=== PATIENT | male | born 1965 | race Caucasian/White ===

== ENCOUNTER 2018-01-13 21:37 | Observation (INO) | payer BC ==
[~2018-01-13] VITALS: Ht 177.8 cm; Wt 101.7 kg
[~2018-01-13 21:37] MED LIST: ATRITAB PO; HYDR-3533 PO; NAPR500 PO
[2018-01-13] MEDS ORDERED: SODIUM CHLORIDE 0.9% FLUSH 10 ML FLUSH IVF PRN (21:45)
[2018-01-13 21:46] VITALS: BP 120/70; PULSE 120; RESP 18; TEMP 98.6
--- NOTE | 2018-01-13 21:47 | PD ---
HPI Chief Complaint: Short of breath Time Seen by Provider: 21:40 Travel History International Travel<30 days: No Contact w/Intl Traveler<30days: No Traveled to known affect area: No History of Present Illness HPI This patient complains of shortness of breath. Symptoms are severe. He has COPD. He quit smoking 14 months ago. He became progressively short of breath over the course of a day or 2. He was wheezing. He called paramedics. They found him with room air saturation of 77%. He was doing poorly. I gave him IV Solu-Medrol and some nebulizers in route and he is still very sick but improved. He arrives critically ill. No chest pain. No syncope. Denies IV drug use. No exacerbating factors. Symptoms partially alleviated by nebulizer treatment PFSH Past Medical History COPD: Yes Diminished Hearing: No Immune Disorder: Yes (HIV +) Musculoskeletal: Yes (FX LOWER BACK) Immunizations Current: Yes Past Surgical History Abdominal Surgery: Yes (HERNIA) Other Surgery: Yes (HERNIA) Social History Alcohol Use: Yes (1-2 TIMES WEEKLY) Tobacco Use: Yes (1PPD) Substance Use: No Allergies-Medications (Allergen,Severity, Reaction): Coded Allergies: No Known Allergies (Verified , 08/26/15) Reported Meds & Prescriptions Reported Meds & Active Scripts Active Reported Lexapro (Escitalopram Oxalate) 5 Mg Tab 5 Mg PO DAILY Lisinopril 20 Mg Tab 20 Mg PO DAILY Review of Systems General / Constitutional: No: Fever Eyes: No: Visual changes HENT: No: Headaches Cardiovascular: Positive: Tachycardia, No: Chest Pain or Discomfort Respiratory: Positive: Shortness of Breath, Wheezing Gastrointestinal: No: Abdominal Pain Genitourinary: No: Dysuria Musculoskeletal: No: Pain Skin: No Rash Neurologic: No: Weakness Psychiatric: No: Depression Endocrine: No: Polydipsia Hematologic/Lymphatic: No: Easy Bruising Physical Exam Narrative GENERAL: Well-nourished, well-developed patient in respiratory distress. SKIN: Focused skin assessment reveals no rash and nodules. Skin is Warm and dry. HEAD: Atraumatic. Normocephalic. EYES: Pupils equal and round. No scleral icterus. No injection or drainage. ENT: No nasal bleeding or discharge. Mucous membranes pink and moist. NECK: Trachea midline. No JVD. CARDIOVASCULAR: Regular rate and rhythm. No murmur appreciated. Heart rate 120 RESPIRATORY: Positive accessory muscle use. Diffuse expiratory wheezing. Breath sounds equal bilaterally. GASTROINTESTINAL: Abdomen soft, non-tender, nondistended. Hepatic and splenic margins not palpable. MUSCULOSKELETAL: No obvious deformities. No clubbing. No cyanosis. No edema. NEUROLOGICAL: Awake and alert. No obvious cranial nerve deficits. Motor grossly within normal limits. Normal speech. PSYCHIATRIC: Appropriate mood and affect; insight and judgment normal. Data Data Last Documented VS Vital Signs Date Time Temp Pulse Resp B/P (MAP) Pulse Ox O2 Delivery O2 Flow Rate FiO2 01/13/18 21:50 94 Nasal Cannula 01/13/18 21:50 2.00 01/13/18 21:46 98.6 120 18 120/70 (87) Orders Orders Complete Blood Count With Diff (01/13/18 21:43) Basic Metabolic Panel (Bmp) (01/13/18 21:43) Iv Access Insert/Monitor (01/13/18 21:43) Electrocardiogram (01/13/18 21:43) Ecg Monitoring (01/13/18 21:43) Oximetry (01/13/18 21:43) Oxygen Administration (01/13/18 21:43) Chest, Single Ap (01/13/18 21:43) Sodium Chloride 0.9% Flush (Ns Flush) (01/13/18 21:45) Albuterol-Ipratropium Neb (Duoneb Neb) (01/13/18 21:45) Admit Order (Ed Use Only) (01/13/18 22:47) Labs Laboratory Tests Test 01/13/18 21:51 White Blood Count 6.4 TH/MM3 Red Blood Count 4.44 MIL/MM3 Hemoglobin 15.0 GM/DL Hematocrit 43.4 % Mean Corpuscular Volume 97.7 FL Mean Corpuscular Hemoglobin 33.7 PG Mean Corpuscular Hemoglobin Concent 34.5 % Red Cell Distribution Width 11.4 % Platelet Count 204 TH/MM3 Mean Platelet Volume 8.7 FL Neutrophils (%) (Auto) 53.4 % Lymphocytes (%) (Auto) 29.7 % Monocytes (%) (Auto) 9.0 % Eosinophils (%) (Auto) 5.9 % Basophils (%) (Auto) 2.0 % Neutrophils # (Auto) 3.4 TH/MM3 Lymphocytes # (Auto) 1.9 TH/MM3 Monocytes # (Auto) 0.6 TH/MM3 Eosinophils # (Auto) 0.4 TH/MM3 Basophils # (Auto) 0.1 TH/MM3 CBC Comment DIFF FINAL Differential Comment Blood Urea Nitrogen 12 MG/DL Creatinine 0.93 MG/DL Random Glucose 123 MG/DL Calcium Level 8.8 MG/DL Sodium Level 137 MEQ/L Potassium Level 4.1 MEQ/L Chloride Level 104 MEQ/L Carbon Dioxide Level 20.9 MEQ/L Anion Gap 12 MEQ/L Estimat Glomerular Filtration Rate 85 ML/MIN MDM Medical Decision Making Medical Screen Exam Complete: Yes Emergency Medical Condition: Yes Medical Record Reviewed: Yes Differential Diagnosis COPD, pneumonia, pneumothorax Narrative Course I have reviewed the patient's electronic medical record. This patient presents critically ill in respiratory distress. He is in acute hypoxic respirator failure I gave him a series of 3 nebulizer treatments I placed on oxygen Saturations are 88% on arrival on room air IV placed and labs sent I reviewed his EKG which shows sinus tachycardia without ectopy I reviewed his chest x-ray which shows chronic interstitial changes CBC and metabolic studies are reasonably normal Patient experienced significant improvement after the above treatments He has some persistent wheezing but improved Saturations are still on the low side, now 92% on room air On 2 L he is 97% Stable for regular floor observation at this time. Call placed to hospitalist to discuss Critical Care Narrative Aggregate critical care time was 35 minutes. Time to perform other separately billable procedures was not included in the critical care time. My time did not include minutes spent treating any other patients simultaneously or on activities that did not directly contribute to the patient's treatment. The services I provided to this patient were to treat and/or prevent clinically significant deterioration that could result in: Pulmonary arrest, respiratory collapse, aspiration I provided critical care services requiring my management, as noted below: Chart data review, documentation time, medication orders and management, vital sign assessments/reviewing monitor data, ordering and reviewing lab tests, ordering and interpreting/reviewing x-rays and diagnostic studies, care of the patient and discussion of the patient with the admitting physicians. Diagnosis Primary Impression: Acute respiratory failure with hypoxia Additional Impression: COPD with acute exacerbation Admitting Information Admitting Physician Requests: Observation Sylvain Mendes MD Jan 13, 2018 21:47
[2018-01-13 21:50] VITALS: O2SAT 94
[2018-01-13] MEDS: RESP: ALBUTEROL 2.5 MG/IPRATROPIUM 0.5 MG NEB (SCH) INH ×3 (21:52→22:14)
[2018-01-13] MEDS ORDERED: LISI-515 PO (21:55)
[2018-01-13 22:12] LABS: AUTOMATED NEUTROPHIL # 3.4 TH/MM3 (1.8-7.7); BASOPHIL # 0.1 TH/MM3 (0-0.2); EOSINOPHIL # 0.4 TH/MM3 (0-0.4); EOSINOPHIL % 5.9 % (0.0-4.0); HEMATOCRIT 43.4 % (39.0-51.0); LYMPH % 29.7 % (9.0-44.0); LYMPHOCYTE # 1.9 TH/MM3 (1.0-4.8); MEAN CELL VOLUME 97.7 FL (80.0-100.0); MEAN CORPUSCULAR HEMOGLOBIN 33.7 PG (27.0-34.0); MEAN CORPUSCULAR HGB CONC 34.5 % (32.0-36.0); MEAN PLATELET VOLUME 8.7 FL (7.0-11.0); MONOCYTE # 0.6 TH/MM3 (0-0.9); NEUT % 53.4 % (16.0-70.0); PLATELET COUNT 204 TH/MM3 (150-450); RED BLOOD COUNT 4.44 MIL/MM3 (4.50-5.90); RED CELL DISTRIBUTION WIDTH 11.4 % (11.6-17.2); WHITE BLOOD COUNT 6.4 TH/MM3 (4.0-11.0)
--- NOTE | 2018-01-13 22:13 | RADRPT ---
EXAM DATE: 01/13/2018 10:11 PM EDT AGE/SEX: 52 years / Male INDICATIONS: Shortness of breath. CLINICAL DATA: This is the patient's initial encounter. Patient reports that signs and symptoms have been present for 2 days and indicates a pain score of 0/10. MEDICAL/SURGICAL HISTORY: None. None. COMPARISON: No prior exams available for comparison. FINDINGS: There are mild chronic interstitial changes. The lungs are otherwise clear. The cardiac and mediastin al contours are within normal limits. The visualized bony structures are grossly intact. CONCLUSION: Mild chronic interstitial changes. Electronically signed by: Contreras Rios MD 01/13/2018 10:12 PM EDT
[2018-01-13 22:19] LABS: CALCIUM 8.8 MG/DL (8.5-10.1)
[2018-01-13 22:20] LABS: BICARBONATE 20.9 MEQ/L (21.0-32.0)
[2018-01-13 22:23] LABS: CREATININE 0.93 MG/DL (0.60-1.30)
[2018-01-13] MEDS ORDERED: LEXA5TAB PO (22:29)
[2018-01-13 23:01] VITALS: BP 122/62; PULSE 110; RESP 18; O2SAT 95
[2018-01-13] MEDS ORDERED: RESP: ALBUTEROL 2.5 MG/3 ML NEB (PRN) INH (23:15)
[2018-01-13] MEDS: methylPREDNISolone SOD SUCC 125 MG/2 ML VIAL IV PUSH SCH (23:15)
[2018-01-13] MEDS ORDERED: SODIUM CHLORIDE 0.9% FLUSH 10 ML FLUSH IV FLUSH PRN (23:15)
[2018-01-14 00:01] VITALS: O2SAT 97
[2018-01-14] MEDS: RESP: ALBUTEROL 2.5 MG/IPRATROPIUM 0.5 MG NEB (SCH) INH ×3 (00:01→07:35)
[2018-01-14 00:13] VITALS: BP 126/82; TEMP 98.7
[2018-01-14 00:23] VITALS: BP 133/87; PULSE 108; RESP 22; TEMP 97; O2SAT 96
[2018-01-14 04:00] VITALS: BP 136/79; PULSE 113; RESP 20; TEMP 96.9; O2SAT 95
[2018-01-14] MEDS: methylPREDNISolone SOD SUCC 125 MG/2 ML VIAL IV PUSH SCH (05:14)
[2018-01-14 06:41] LABS: AUTOMATED NEUTROPHIL # 6.9 TH/MM3 (1.8-7.7); BASOPHIL % 0.2 % (0.0-2.0); EOSINOPHIL % 0.1 % (0.0-4.0); HEMOGLOBIN 14.7 GM/DL (13.0-17.0); LYMPH % 7.3 % (9.0-44.0); LYMPHOCYTE # 0.5 TH/MM3 (1.0-4.8); MEAN CELL VOLUME 98.2 FL (80.0-100.0); MEAN CORPUSCULAR HEMOGLOBIN 33.6 PG (27.0-34.0); MEAN CORPUSCULAR HGB CONC 34.2 % (32.0-36.0); MEAN PLATELET VOLUME 8.6 FL (7.0-11.0); MONO % 1.3 % (0.0-8.0); MONOCYTE # 0.1 TH/MM3 (0-0.9); NEUT % 91.1 % (16.0-70.0); PLATELET COUNT 207 TH/MM3 (150-450); RED BLOOD COUNT 4.38 MIL/MM3 (4.50-5.90); RED CELL DISTRIBUTION WIDTH 11.7 % (11.6-17.2); WHITE BLOOD COUNT 7.5 TH/MM3 (4.0-11.0)
[2018-01-14 06:49] LABS: CALCIUM 9.1 MG/DL (8.5-10.1)
[2018-01-14 06:53] LABS: CREATININE 1.1 MG/DL (0.60-1.30)
--- NOTE | 2018-01-14 07:32 | HHI.HP ---
[facility] No Primary Care Physician Admission Diagnosis Acute hypoxic resp failure, COPD Diagnoses: (1) COPD with acute exacerbation (2) Acute respiratory failure with hypoxia Chief Complaint: Shortness breath Travel History International Travel<30 Days: No Contact w/Intl Traveler <30 Da: No Traveled to Known Affected Are: No History of Present Illness This is a pleasant 52-year-old male patient with a known medical history of COPD and HIV who presented to the ED with complaints of shortness of breath. Patient states that last evening after having a couple beers and taking a puff of marijuana he became short of breath, states that his lungs felt "like they were closing", as well as audible wheezing. Patient states that he attempted to use his inhaler as well as nebulizer without any relief. He states that up to this point he was doing well, at his normal baseline. Denies any recent illness including fever, chills, abdominal pain, nausea, vomiting, diarrhea or dysuria. Patient states he quit smoking over one year ago after many years of tobacco abuse. Supposedly patient was found with oxygen saturation on room air at 77% at home. Patient was given IV Solu-Medrol in ED and nebulizers. At the time of assessment this morning patient states he feels much improved, essentially at his baseline. He states he follows with the PCP was last seen 2 months ago denies any recent change in his medicines. Denies any recent antibiotic use or steroid use. Patient did follow with Dr. Beatty over one year ago although with change in insurance he has been unable to follow him. Review of Systems Constitutional: DENIES: Fatigue, Fever, Chills, Dizziness Eyes: DENIES: Diplopia Ears, nose, mouth, throat: DENIES: Vertigo Respiratory: COMPLAINS OF: Shortness of breath, DENIES: Cough, Sputum production Cardiovascular: DENIES: Chest pain, Palpitations Gastrointestinal: DENIES: Abdominal pain, Black stools, Bloody stools, Constipation, Diarrhea, Nausea, Vomiting Genitourinary: DENIES: Urinary frequency Musculoskeletal: DENIES: Joint pain Immunologic/allergic: DENIES: Eczema Neurologic: DENIES: Abnormal gait Psychiatric: DENIES: Anxiety Except as stated in HPI: all other systems reviewed are Neg Past Family Social History Past Medical History History of tobacco abuse COPD HIV positive History of lower back fracture with chronic pain Past Surgical History Hernia repair Reported Medications Active Azithromycin 500 Mg Tab 500 Mg PO DAILY 5 Days Medrol Dosepak (Methylprednisolone) 4 Mg Dspk 4 Mg PO DIRECTED Per Pharmacist direction Reported Lexapro (Escitalopram Oxalate) 5 Mg Tab 5 Mg PO DAILY Lisinopril 20 Mg Tab 20 Mg PO DAILY Allergies: Coded Allergies: No Known Allergies (Verified Allergy, Unknown, 01/13/18) Active Ordered Medications Current Medications Medications (Trade) Dose Ordered Sig/Jessica Route Start Time Stop Time Status Last Admin (NS Flush) 2 ml UNSCH PRN IVF 01/13/18 21:45 (NS Flush) 2 ml BID IV FLUSH 01/14/18 09:00 01/14/18 08:10 (NS Flush) 2 ml UNSCH PRN IV FLUSH 01/13/18 23:15 (Duoneb Neb) 1 ampule Q4HR NEB INH 01/14/18 00:00 01/14/18 07:35 (Albuterol Neb) 2.5 mg Q2HR NEB PRN INH 01/13/18 23:15 (SoluMEDROL INJ) 60 mg Q6H IV PUSH 01/13/18 23:15 01/14/18 05:14 (Lexapro) 5 mg DAILY PO 01/14/18 09:00 01/14/18 08:09 (Prinivil) 20 mg DAILY PO 01/14/18 09:00 01/14/18 08:10 Family History Maternal medical history significant for liver cancer. Paternal medical history significant for IL at the age of 6868 years old. Brother had a history of IL at the age of 5555 years old. Social History Patient admits to drinking 5-6 beers per day. Patient quit smoking 14 months ago , prior to this he was smoking 1 ppd for many years. Does admit to occasional marijuana use. Physical Exam Vital Signs Vital Signs Date Time Temp Pulse Resp B/P (MAP) Pulse Ox O2 Delivery O2 Flow Rate FiO2 01/14/18 04:00 96.9 113 20 136/79 (98) 95 01/14/18 00:23 97.0 108 22 133/87 (102) 96 01/14/18 00:13 98.7 117 18 126/82 (97) 95 Nasal Cannula 2.00 01/14/18 00:01 97 Nasal Cannula 2.00 01/13/18 23:01 110 18 122/62 (82) 95 Nasal Cannula 2.00 01/13/18 21:50 94 Nasal Cannula 01/13/18 21:50 90 Room Air 01/13/18 21:50 94 Room Air 2.00 01/13/18 21:46 98.6 120 18 120/70 (87) Physical Exam GENERAL: This is a well-nourished, well-developed patient, in no apparent distress. SKIN: No rashes, ecchymoses or lesions. Cool and dry. HEAD: Atraumatic. Normocephalic. No temporal or scalp tenderness. EYES: Pupils equal round and reactive. Extraocular motions intact. No scleral icterus. No injection or drainage. ENT: Nose without bleeding, purulent drainage or septal hematoma. Throat without erythema, tonsillar hypertrophy or exudate. Uvula midline. Airway patent. NECK: Trachea midline. No JVD or lymphadenopathy. Supple, nontender, no meningeal signs. CARDIOVASCULAR: Regular rate and rhythm without murmurs, gallops, or rubs. RESPIRATORY: Clear to auscultation. Breath sounds equal bilaterally. No wheezes , rales, or rhonchi. GASTROINTESTINAL: Abdomen soft, non-tender, nondistended. No hepato-splenomegaly , or palpable masses. No guarding. MUSCULOSKELETAL: Extremities without clubbing, cyanosis, or edema. No joint tenderness, effusion, or edema noted. No calf tenderness. Negative Homans sign bilaterally. NEUROLOGICAL: Awake and alert. Cranial nerves II through XII intact. Motor and sensory grossly within normal limits. Five out of 5 muscle strength in all muscle groups. Normal speech. Laboratory Laboratory Tests Test 01/13/18 21:51 01/14/18 06:10 White Blood Count 6.4 7.5 Red Blood Count 4.44 4.38 Hemoglobin 15.0 14.7 Hematocrit 43.4 43.0 Mean Corpuscular Volume 97.7 98.2 Mean Corpuscular Hemoglobin 33.7 33.6 Mean Corpuscular Hemoglobin Concent 34.5 34.2 Red Cell Distribution Width 11.4 11.7 Platelet Count 204 207 Mean Platelet Volume 8.7 8.6 Neutrophils (%) (Auto) 53.4 91.1 Lymphocytes (%) (Auto) 29.7 7.3 Monocytes (%) (Auto) 9.0 1.3 Eosinophils (%) (Auto) 5.9 0.1 Basophils (%) (Auto) 2.0 0.2 Neutrophils # (Auto) 3.4 6.9 Lymphocytes # (Auto) 1.9 0.5 Monocytes # (Auto) 0.6 0.1 Eosinophils # (Auto) 0.4 0.0 Basophils # (Auto) 0.1 0.0 CBC Comment DIFF FINAL DIFF FINAL Differential Comment Blood Urea Nitrogen 12 12 Creatinine 0.93 1.10 Random Glucose 123 171 Calcium Level 8.8 9.1 Sodium Level 137 138 Potassium Level 4.1 4.4 Chloride Level 104 104 Carbon Dioxide Level 20.9 19.0 Anion Gap 12 15 Estimat Glomerular Filtration Rate 85 70 Result Diagram: 01/14/18 0610 01/14/18 0610 Imaging Last Impressions Chest X-Ray 01/13/182142 Signed Impressions: CONCLUSION: Mild chronic interstitial changes. Septic Shock Reassessment Septic shock perfusion: reassessment completed Caprini VTE Risk Assessment Caprini VTE Risk Assessment: No/Low Risk (score <= 1) Caprini Risk Assessment Model Point Value = 1 Point Value = 2 Point Value = 3 Point Value = 5 Age 41-60 Minor surgery BMI > 25 kg/m2 Swollen legs Varicose veins or History of unexplained or recurrent spontaneous Oral contraceptives or hormone replacement Sepsis (< 1 month) Serious lung disease, including pneumonia (< 1 month) Abnormal pulmonary function Acute myocardial infarction Congestive heart failure (< 1 month) History of inflammatory bowel disease Medical patient at bed rest Age 61-74 Arthroscopic surgery Major open surgery (> 45 min) Laparoscopic surgery (> 45 min) Malignancy Confined to bed (> 72 hours) Immobilizing plaster cast Central venous access Age >= 75 History of VTE Family history of VTE Factor V Leiden Prothrombin [id number] Lupus anticoagulant Anticardiolipin antibodies Elevated serum homocysteine Heparin-induced thrombocytopenia Other congenital or acquired thrombophilia Stroke (< 1 month) Elective arthroplasty Hip, pelvis, or leg fracture Acute spinal cord injury (< 1 month) Prophylaxis Regimen Total Risk Factor Score Risk Level Prophylaxis Regimen 0-1 Low Early ambulation 2 Moderate Order ONE of the following: *Sequential Compression Device (SCD) *Heparin 5000 units SQ BID 3-4 Higher Order ONE of the following medications: *Heparin 5000 units SQ TID *Enoxaparin/Lovenox 40 mg SQ daily (WT < 150 kg, CrCl > 30 mL/min) *Enoxaparin/Lovenox 30 mg SQ daily (WT < 150 kg, CrCl > 10-29 mL/min) *Enoxaparin/Lovenox 30 mg SQ BID (WT < 150 kg, CrCl > 30 mL/min) AND/OR *Sequential Compression Device (SCD) 5 or more Highest Order ONE of the following medications: *Heparin 5000 units SQ TID (Preferred with Epidurals) *Enoxaparin/Lovenox 40 mg SQ daily (WT < 150 kg, CrCl > 30 mL/min) *Enoxaparin/Lovenox 30 mg SQ daily (WT < 150 kg, CrCl > 10-29 mL/min) *Enoxaparin/Lovenox 30 mg SQ BID (WT < 150 kg, CrCl > 30 mL/min) AND *Sequential Compression Device (SCD) Assessment and Plan Problem List: (1) COPD with acute exacerbation ICD Code: J44.1 - Chronic obstructive pulmonary disease with (acute) exacerbation Status: Acute (2) Acute respiratory failure with hypoxia ICD Code: J96.01 - Acute respiratory failure with hypoxia Status: Acute Assessment and Plan This is a pleasant 52-year-old male patient with a known medical history of COPD and HIV who presented to the ED with complaints of shortness of breath. Patient states that last evening after having a couple beers and taking a puff of marijuana he became short of breath, states that his lungs felt "like they were closing", as well as audible wheezing. COPD with acute exacerbation with acute respiratory failure and hypoxia - Patient was given IV steroids as well as duo nebs. Patient symptoms have improved tremendously overnight. - Was given Medrol Dosepak on discharge. As well as antibiotics for discharge. Does admit to green colored phlegm. - Used supplemental O2 overnight. Now on RA with oxygen saturations 97%. - Patient states he has nebulizer and inhalers at home. - Follow up PCP on dc. Hypertension, chronic: Continued home lisinopril. Blood pressure stable. DVT prophylaxis: SCDs. Discharge patient to home. Condition on discharge: Improved. Regular Diet as tolerated. Ad Zoey activity. Rx written: Please see discharge instructions. Follow-up with primary care physician. Echo Jack Jan 14, 2018 07:31
[2018-01-14 07:35] VITALS: O2SAT 97
[2018-01-14 07:50] VITALS: BP 152/84; PULSE 118; RESP 20; TEMP 97.1; O2SAT 95
[2018-01-14] MEDS ORDERED: SODIUM CHLORIDE 0.9% FLUSH 10 ML FLUSH IV FLUSH SCH (09:00)
[2018-01-14] MEDS ORDERED: ESCITALOPRAM OXALATE 10 MG TAB PO SCH (09:00)
[2018-01-14] MEDS ORDERED: LISINOPRIL 20 MG TAB PO SCH (09:00)
[2018-01-14] MEDS ORDERED: AZIT500T2 PO (09:34)
[2018-01-14] MEDS ORDERED: MEDR4PAK PO (09:34)
--- NOTE | 2018-01-14 09:35 | HHI.DCPOC ---
Discharge Care Plan Diagnosis: (1) Acute respiratory failure with hypoxia (2) COPD with acute exacerbation Goals to Promote Your Health * To prevent worsening of your condition and complications * To maintain your health at the optimal level Directions to Meet Your Goals Take your medications as prescribed Follow your dietary instruction Follow activity as directed Keep your appointments as scheduled Take your immunizations and boosters as scheduled If your symptoms worsen call your PCP, if no PCP go to Urgent Care Center or Emergency Room Smoking is Dangerous to Your Health. Avoid second hand smoke Call the 24-hour hour crisis hotline for domestic abuse at [facility] Jan 14, 2018 09:34
--- NOTE | 2018-01-14 20:46 | EKG ---
Date Performed: 01/13/2018 Time Performed: 21:49:01 PTAGE: 52 years EKG: SINUS TACHYCARDIA MODERATE T-WAVE ABNORMALITY ABNORMAL ECG PREVIOUS TRACING : 03/13/2006 10.51 Compared to previous tracing, rate faster DOCTOR: Valerie Fisher Interpretating Date/Time 01/14/2018 20:46:01
== END 2018-01-14 10:59 | disposition home or self-care (01) ==
LOC: PHED 21:37 → PHEDA 22:48 → PH3A 01-14 00:23
PROVIDERS: ADMIT Hospitalist; ATTEND Hospitalist
DX: J96.01 Acute respiratory failure with hypoxia (principal); J44.1 Chronic obstructive pulmonary disease with (acute) exacerbation; Z87.891 Personal history of nicotine dependence; Z21 Asymptomatic human immunodeficiency virus [HIV] infection status; G89.29 Other chronic pain; F12.90 Cannabis use, unspecified, uncomplicated; I10 Essential (primary) hypertension; R94.31 Abnormal electrocardiogram [ECG] [EKG]
CPT/HCPCS: 71045; 80048; 85025; 93005; 94640; 94664; 96374; 99291; G0378; J2930